=== PATIENT | male | born 1960 | race Caucasian/White ===

== ENCOUNTER 2016-06-05 18:40 | Emergency (ER) ==
[2016-06-05 18:55] LABS: MANUAL DIFF NEEDED? NO
[2016-06-05 19:01] LABS: BASO% 0.2 % (0.0-0.8); EOS% 0.7 % (0.0-10.0); HEMATOCRIT 38.6 % (42.0-52.0); HEMOGLOBIN 13.6 g/dL (14.0-18.0); IMM GRAN# 0.02 X1000 (0.0-0.04); IMM GRAN% 0.1 % (0.0-0.5); LYMPH# 1.95 X1000 (1.2-3.4); LYMPH% 12.8 % (20.5-51.1); MCH 30.2 PG (27-31); MCHC 35.2 g/dL (33-37); MCV 85.8 FL (81-99); MONO# 0.86 X1000 (0.11-0.59); MONO% 5.7 % (1.7-9.3); MPV 9.9 FL (7.4-10.4); NEUT% 80.5 % (42.2-75.2); PLT 263 X1000 (130-400)
[2016-06-05 19:20] LABS: ALBUMIN 4.4 g/dL (3.5-5.0); CALCIUM 9.6 mg/dL (8.8-10.2); POTASSIUM 3.8 mmol/L (3.5-5.1); TOTAL BILIRUBIN 0.84 mg/dL (0.20-1.00); TOTAL PROTEIN 7.1 g/dL (6.3-8.3)
--- NOTE | 2016-06-05 20:27 | PROVIDER DOCUMENTATION ---
HPI-Musculoskeletal Pain/Inj - GENERAL Chief Complaint: Flank Pain Stated Complaint: KIDNEY STONE Time Seen by Provider: 06/05/16 20:21 Source: patient - HX OF PRESENT ILLNESS-MUSKULOSKELTAL Nature of Presenting Problem: 56 y/o WM c/o L flank pain x 6 hours. Pt states he was out working and felt some pain in L side of back and wasn't sure if he pulled something, but then it sent a stabbing pain to his flank and has been constant since. Denies any radiation. Vomit x 1. States pain 10/10, stabbing in nature. Denies any hx of kidney stones. Denies any urinary sxs. Reports hard stools. Review of Systems - Adult - REVIEW OF SYSTEMS - ADULT Constitutional: reports: no symptoms reported. denies: chills, fever Eyes: reports: no symptoms reported. denies: blurred vision, double vision Ears, Nose, Mouth & Throat: reports: no symptoms reported. denies: ear pain, nose pain Cardiovascular: reports: no symptoms reported. denies: chest pain, palpitations Respiratory: reports: no symptoms reported. denies: dyspnea on exertion, shortness of breath Gastrointestinal: reports: see HPI, abdominal pain, nausea, vomiting. denies: diarrhea Genitourinary: reports: see HPI, flank pain. denies: dysuria, frequency, hematuria Musculoskeletal: reports: no symptoms reported. denies: joint pain, joint swelling Integumentary: reports: no symptoms reported. denies: nail changes, rash Neurological: reports: no symptoms reported. denies: numbness, paresthesia Psychiatric: reports: no symptoms reported Endocrine: reports: no symptoms reported. denies: cold intolerance, heat intolerance Hematologic/Lymphatic: reports: no symptoms reported. denies: easy bruising, prolonged bleeding Allergic/Immunologic: reports: no symptoms reported All Other Systems: Reviewed and Negative Past History - Adult - PAST MEDICAL HISTORY-ADULT Review of Records: reports: Nursing Assessment Review, Medications Reviewed - SOCIAL HISTORY Smoking: denies Alcohol Use Frequency: never Physical Exam-Injury Related - Physical Exam-Injury Related Initial Vital Signs Reviewed: Yes General Appearance: alert, moderate distress Eyes: pink conjunctivae Head, Ears, Nose, Mouth & Throat: normocephalic/atraumatic, moist mucous membranes Neck: normal inspection Respiratory: lungs clear, normal breath sounds. negative: crackles, rales, rhonchi, stridor, wheezing Cardiovascular: normal peripheral pulses, regular rate, rhythm. negative: bradycardia, tachycardia Peripheral Pulses: radial (R): 2+, radial (L): 2+ Abdominal Exam: normal bowel sounds, soft, tenderness (mild-generalized). negative: distended, guarding, rigid, rebound, McBurney's point tenderness, Hale's sign Back Exam: no vertebral tenderness, CVA tenderness (L) Extremity: normal gait Integumentary: normal color, warm/dry Neurologic: negative: aphasia Psych/Mental Status: normal mood/affect, normal thought content, normal thought process, oriented x 3 Progress - PLAN OF CARE/RESULTS Progress/Plan/Lab Results: Laboratory Tests 06/05/16 06/05/16 06/05/16 18:45 18:45 19:50 WBC 15.20 H RBC 4.50 L Hgb 13.6 L Hct 38.6 L MCV 85.8 MCH 30.2 MCHC 35.2 RDW Std Deviation 12.7 Plt Count 263 MPV 9.9 Immature Gran % (Auto) 0.1 Neut % (Auto) 80.5 H Lymph % (Auto) 12.8 L Coffey % (Auto) 5.7 Eos % (Auto) 0.7 Baso % (Auto) 0.2 Immature Gran # (Auto) 0.02 Neut # (Auto) 12.24 H Lymph # (Auto) 1.95 Coffey # (Auto) 0.86 H Eos # (Auto) 0.10 Baso # (Auto) 0.03 Sodium 141 Potassium 3.8 Chloride 105 Carbon Dioxide 22 L Anion Gap 14 BUN 23 H Creatinine 1.4 H Estimated GFR/1.73 m2 52 BUN/Creatinine Ratio 16 Glucose 141 H Calculated Osmolality 287 Calcium 9.6 Total Bilirubin 0.84 AST 26 ALT 28 Alkaline Phosphatase 76 Total Protein 7.1 Albumin 4.4 Globulin 2.7 Albumin/Globulin Ratio 1.6 Amylase 59 Lipase 25 Urine Source CLEAN CATCH Urine Color YELLOW Urine Turbidity CLEAR Urine pH 7.0 Ur Specific [place] 1.024 Urine Protein NEGATIVE Ur Glucose (Stick) NEGATIVE Ur Ketones (Stick) 40 A Urine Blood NEGATIVE Urine Nitrite NEGATIVE Urine Bilirubin NEGATIVE Urobilinogen Dipstick 2 A Urine Leukocytes NEGATIVE Urine WBC (Auto) <10 Urine RBC (Auto) <10 U Epithel Cells (Auto) <10 Urine Bacteria (Auto) NEGATIVE Orders Category Date Time Status RENAL STONE SEARCH [CT] Stat Exams 06/05/16 18:48 Draft AMYLASE [CHEM] Stat Lab 06/05/16 18:45 Completed CBC WITH ELECTRONIC DIFF [HEME] Stat Lab 06/05/16 18:45 Completed COMPREHENSIVE METABOLIC PANEL [CHEM] Stat Lab 06/05/16 18:45 Completed LIPASE [CHEM] Stat Lab 06/05/16 18:45 Completed UA Reflex [URINALYSIS W/POSS RFLX CULT] [URINALYSIS] Lab 06/05/16 19:50 Completed Stat Hydrocodone/APAP 10 mg/325 mg [Chelsea-10] Med 06/05/16 21:49 Discontinued 1 each PO NOW ONE Ketorolac [Toradol] Med 06/05/16 20:28 Discontinued 60 mg IM NOW ONE Morphine Med 06/05/16 20:32 Discontinued 4 mg IM NOW ONE Promethazine [Phenergan] Med 06/05/16 20:28 Discontinued 25 mg IM NOW ONE Tamsulosin [Flomax] Med 06/05/16 20:31 Discontinued 0.4 mg PO NOW ONE Vital Signs Temp Pulse Resp BP Pulse Ox 06/05/16 22:17 98.9 F 79 16 139/80 100 06/05/16 18:42 97.4 F L 58 L 22 140/80 100 No Known Allergies Allergy (Verified 06/05/16 21:14) Hydrocodone/APAP 7.5 mg/325 mg [Chelsea-7.5] 1 each PO Q6H PRN PRN #10 tablet 03/12 Promethazine [Phenergan] 25 mg PO Q6H PRN PRN #20 tablet 06/05/16 Tamsulosin [Flomax] 0.4 mg PO DAILY #20 capsule 06/05/16 OTHER DORSALGIA (06/05/16) HYDRONEPHROSIS WITH RENAL AND URETERAL CALCULOUS OBSTRUCTION (06/05/16) GENERALIZED ABDOMINAL TENDERNESS (06/05/16) UNSPECIFIED ABDOMINAL PAIN (06/05/16) NAUSEA WITH VOMITING, UNSPECIFIED (06/05/16) I&O 06/06/16 06/07/16 06/08/16 06:59 06:59 06:59 Output Total 60 Balance -60 Laboratory 06/05/16 06/05/16 06/05/16 19:50 18:45 18:45 WBC 15.20 H RBC 4.50 L Hgb 13.6 L Hct 38.6 L MCV 85.8 MCH 30.2 MCHC 35.2 RDW Std Deviation 12.7 Plt Count 263 MPV 9.9 Immature Gran % (Auto) 0.1 Neut % (Auto) 80.5 H Lymph % (Auto) 12.8 L Coffey % (Auto) 5.7 Eos % (Auto) 0.7 Baso % (Auto) 0.2 Immature Gran # (Auto) 0.02 Neut # (Auto) 12.24 H Lymph # (Auto) 1.95 Coffey # (Auto) 0.86 H Eos # (Auto) 0.10 Baso # (Auto) 0.03 Sodium 141 Potassium 3.8 Chloride 105 Carbon Dioxide 22 L Anion Gap 14 BUN 23 H Creatinine 1.4 H Estimated GFR/1.73 m2 52 BUN/Creatinine Ratio 16 Glucose 141 H Calculated Osmolality 287 Calcium 9.6 Total Bilirubin 0.84 AST 26 ALT 28 Alkaline Phosphatase 76 Total Protein 7.1 Albumin 4.4 Globulin 2.7 Albumin/Globulin Ratio 1.6 Amylase 59 Lipase 25 Urine Source CLEAN CATCH Urine Color YELLOW Urine Turbidity CLEAR Urine pH 7.0 Ur Specific [place] 1.024 Urine Protein NEGATIVE Ur Glucose (Stick) NEGATIVE Ur Ketones (Stick) 40 A Urine Blood NEGATIVE Urine Nitrite NEGATIVE Urine Bilirubin NEGATIVE Urobilinogen Dipstick 2 A Urine Leukocytes NEGATIVE Urine WBC (Auto) <10 Urine RBC (Auto) <10 U Epithel Cells (Auto) <10 Urine Bacteria (Auto) NEGATIVE Discussed results with Dr. Mccrary; he agreed with d/c home. Discussed medication use and f/u with pt. - CT/MRI 1 CT Study: Renal Stone Impression: See EMR Report (2 mm distal left ureteral stone with mild hydronephrosis; no other renal stones; no bowel obstruction; no abscess. -per Dr. Bustos) Departure - Departure Time of Disposition Order: 20:33 DIAGNOSIS: Kidney stone on left side Hydronephrosis Qualifiers: Hydronephrosis type: unspecified Qualified Code(s): N13.30 - Unspecified hydronephrosis Disposition: HOME 01 Certified Medical Emergency: Emergent Condition: Stable Additional Instructions: Take medications as directed. Follow up with specialist for further management. Return if symptoms get worse. ED Follow Up Instructions: You have been treated by a care provider in the Emergency Department. These instructions are being provided to you so you can have an understanding of how to care for yourself upon discharge. Upon discharge from the Emergency Department, you are responsible for making arrangements for follow-up care by a physician of your choice. Take all prescribed medications as directed. Return to the Emergency Department immediately for any new or worsening symptoms. You may call the Physician Referral phone number at [phone] to obtain a list of Physicians who are taking new patients. Prescriptions: Tamsulosin [Flomax] 0.4 mg PO DAILY #20 capsule Hydrocodone/APAP 7.5 mg/325 mg [Chelsea-7.5] 1 each PO Q6H PRN PRN #10 tablet PRN Reason: Pain Promethazine [Phenergan] 25 mg PO Q6H PRN PRN #20 tablet PRN Reason: Nausea Referrals: Alexis Mckeon MD [Primary Care Provider] - Sid Salas MD [STAFF PHYSICIAN] - Forms: Return to School/Parent Work Instructions: Kidney Stones, [id number], Hydronephrosis Attestation - Physician/ GORGE Attestation Patient care was provided by Advanced Practice Provider:: Yes Advanced Practice Provider:: Guadalupe Ribeiro Advanced Practice Provider documentation review:: The Mid-level provider documentation, treatment plan and medical decision making was reviewed by the physician who agrees with all treatment and medical decision making by the MLP.
[2016-06-05] MEDS ORDERED: PHENERGAN IM ONE (20:28)
[2016-06-05] MEDS ORDERED: TORADOL IM ONE (20:28)
[2016-06-05] MEDS ORDERED: FLOMAX PO ONE (20:31)
[2016-06-05] MEDS ORDERED: MORPHINE IM ONE (20:32)
[2016-06-05 21:28] LABS: URINE CULTURE NEEDED? NO; URINE MICRO REVIEW NEEDED? NO; URINE SOURCE CLEAN CATCH
[2016-06-05 21:37] LABS: BILIRUBIN URINE NEGATIVE (NEGATIVE); BLOOD URINE NEGATIVE (NEGATIVE); COLOR YELLOW; GLUCOSE URINE NEGATIVE (NEGATIVE); LEUKOCYTES URINE NEGATIVE (NEGATIVE); NITRITE URINE NEGATIVE (NEGATIVE); PROTEIN URINE NEGATIVE (NEGATIVE); SP GRAVITY URINE 1.024; TURBIDITY URINE CLEAR (CLEAR); UROBILINOGEN URINE 2 mg/dL (NORMAL)
[2016-06-05 21:39] LABS: UR EPITHELIAL CELLS <10 /HPF (<10); URINE BACTERIA NEGATIVE /HPF; URINE RBC <10 /HPF (<10); URINE WBC <10 /HPF (<10)
[2016-06-05] MEDS ORDERED: NORCO-10 PO ONE (21:49)
[2016-06-05 22:17] VITALS: BP 139/80
--- NOTE | 2016-06-06 09:25 | Diag Imaging Result Document ---
PROCEDURE NAME: RENAL STONE SEARCH - 06/05/2016 CT ABDOMEN AND PELVIS WITHOUT CONTRAST: COMPARISON: None available. FINDINGS: There is a tiny hypodensity in the right hepatic lobe near the periphery that probably represents a tiny cyst but is too small to characterize. There is a 3-mm obstructing stone at the distal left ureter just proximal to the UVJ with associated moderate left hydroureteronephrosis. No other renal stones are identified. There is a 4.5-cm cyst-density lesion arising from the right kidney. The appendix is normal. Urinary bladder is grossly unremarkable. The remainder of the solid viscera of the abdomen and pelvis and the remainder of the GI tract is essentially unremarkable. IMPRESSION: 1. A 3-mm obstructing stone in the distal left ureter with associated moderate left hydroureteronephrosis as described. 2. Other incidental/nonacute findings detailed above.
== END 2016-06-05 22:22 | disposition home or self-care (01) ==
LOC: ED 18:40
DX: N13.2 Hydronephrosis with renal and ureteral calculous obstruction (principal); R10.9 Unspecified abdominal pain; R11.2 Nausea with vomiting, unspecified; M54.89 Other dorsalgia; R10.817 Generalized abdominal tenderness
CPT/HCPCS: 74176; 80053; 81001; 82150; 83690; 85025; 96372; J1885; J2270; J2550